=== PATIENT | female | born 1965 | race Caucasian/White ===

== ENCOUNTER 2020-12-25 18:01 | Inpatient (IN) | payer OTHER ==
[2020-12-25 19:30] VITALS: BMI 28.3
[2020-12-26] MEDS ORDERED: ONDANSETRON *ODT* 4 MG TABLET SL PRN (01:20)
[2020-12-26] MEDS ORDERED: METHOCARBAMOL 500 MG TABLET PO PRN (01:20)
[2020-12-26] MEDS ORDERED: MAG HYDROX/AL HYDROX/SIMETH 30 ML UNIT-DOSE CUP PO PRN (01:20)
[2020-12-26] MEDS ORDERED: MENTHOL/PHENOL 1 EACH UD MM PRN (01:20)
[2020-12-26] MEDS ORDERED: MAGNESIUM CITRATE 300 ML BOTTLE PO PRN (01:20)
[2020-12-26] MEDS ORDERED: ACETAMINOPHEN 325 MG TABLET (FP) PO PRN (01:20)
[2020-12-26] MEDS ORDERED: NICOTINE 10 MG CARTRIDGE (INHALER) IH PRN (01:20)
[2020-12-26] MEDS ORDERED: MAGNESIUM HYDROX 2400MG/30ML ORAL SUSPENSION 30 ML CUP PO PRN (01:20)
[2020-12-26] MEDS ORDERED: BISMUTH SUBSALICYLATE 524 MG/30 ML PO PRN (01:20)
[2020-12-26] MEDS: MELATONIN 5 MG TABLETS PO SCH ×2 (02:20→22:36)
[2020-12-26] MEDS: IBUPROFEN 400 MG TABLET (FP) PO PRN ×2 (02:36→17:33)
[2020-12-26] MEDS ORDERED: hydrOXYzine PAMOATE 25 MG CAPSULE (FP) PO SCH (06:00)
[2020-12-26] MEDS: diazePAM 5 MG TABLET PO SCH ×4 (07:05→22:36)
[2020-12-26] MEDS ORDERED: hydrOXYzine PAMOATE 25 MG CAPSULE (FP) PO PRN (07:31)
[2020-12-26] MEDS: PRENATAL VITAMINS W/ FOLIC ACID TABLET (FP) PO SCH (11:21)
[2020-12-26 15:53] LABS: HEMATOCRIT 38.9 % (32.4-45.2); HEMOGLOBIN 13.1 GM/dL (10.7-15.3); MCH 32.5 pg (25.7-33.7); MCHC 33.8 g/dl (32.0-36.0); MEAN CELL VOLUME 96.1 fl (80-96); MEAN PLT VOLUME 7.4 fl (7.5-11.1); PLATELET COUNT 207 10^3/uL (134-434); RBC 4.05 M/mm3 (3.60-5.2); RDW 14.3 % (11.6-15.6); WHITE BLOOD COUNT 6.5 K/mm3 (4.0-10.0)
[2020-12-26 16:03] LABS: ALBUMIN 3.6 g/dl (3.4-5.0); BLOOD UREA NITROGEN 23.9 mg/dL (7-18); CALCIUM 8.4 mg/dL (8.5-10.1)
[2020-12-26 16:08] LABS: BILIRUBIN,TOTAL 0.6 mg/dL (0.2-1); TOT PROT 6.2 g/dl (6.4-8.2)
[2020-12-26] MEDS: THIAMINE HCL 100 MG TABLET (FP) PO SCH (22:36)
[2020-12-26] MEDS: ACETAMINOPHEN 325 MG TABLET (FP) PO PRN (22:37)
[2020-12-27] MEDS: diazePAM 5 MG TABLET PO SCH ×3 (05:57→22:09)
[2020-12-27] MEDS: IBUPROFEN 400 MG TABLET (FP) PO PRN (06:16)
[2020-12-27] MEDS: PRENATAL VITAMINS W/ FOLIC ACID TABLET (FP) PO SCH (10:41)
[2020-12-27] MEDS: ACETAMINOPHEN 325 MG TABLET (FP) PO PRN ×2 (13:24→22:10)
[2020-12-27] MEDS: THIAMINE HCL 100 MG TABLET (FP) PO SCH (22:08)
[2020-12-27] MEDS: MELATONIN 5 MG TABLETS PO SCH (22:08)
[2020-12-28] MEDS: diazePAM 5 MG TABLET PO SCH ×2 (05:51→17:51)
[2020-12-28] MEDS: diazePAM 5 MG TABLET PO PRN ×2 (10:26→22:11)
[2020-12-28] MEDS: PRENATAL VITAMINS W/ FOLIC ACID TABLET (FP) PO SCH (10:28)
[2020-12-28] MEDS ORDERED: MASKS NR ONE (10:28)
[2020-12-28] MEDS: MELATONIN 5 MG TABLETS PO SCH (22:10)
[2020-12-28] MEDS: THIAMINE HCL 100 MG TABLET (FP) PO SCH (22:10)
[2020-12-29] MEDS: IBUPROFEN 400 MG TABLET (FP) PO PRN (05:51)
[2020-12-29] MEDS ORDERED: diazePAM 5 MG TABLET PO ONE (06:00)
[2020-12-29 06:26] VITALS: TEMP 96.9
[2020-12-29] MEDS: PRENATAL VITAMINS W/ FOLIC ACID TABLET (FP) PO SCH (09:16)
[2020-12-29 11:00] VITALS: BP 125/94; PULSE 100
== END 2020-12-29 10:54 | disposition home or self-care (01) | DRG 775 ==
LOC: YASAS 18:01 → Y3N 23:32
PROVIDERS: ADMIT Allergy & Immunology; ATTEND Allergy & Immunology
PROC: HZ2ZZZZ Detoxification Services for Substance Abuse Treatment (ICD-10-PCS; principal; 2020-12-25)
DX: F10.230 Alcohol dependence with withdrawal, uncomplicated (principal); F19.24 Other psychoactive substance dependence with psychoactive substance-induced mood disorder; I10 Essential (primary) hypertension; G40.909 Epilepsy, unspecified, not intractable, without status epilepticus; E78.5 Hyperlipidemia, unspecified; G47.00 Insomnia, unspecified; Z56.0 Unemployment, unspecified
CPT/HCPCS: 36415; 80053; 81025; 84520; 85027; 86780; C9803; U0003; U0005

== ENCOUNTER 2021-08-26 12:49 | Inpatient (IN) | payer OTHER ==
[2021-08-26] MEDS ORDERED: ONDANSETRON *ODT* 4 MG TABLET SL PRN (14:03)
[2021-08-26] MEDS ORDERED: LOPERAMIDE HCL 2 MG CAPSULE PO PRN (14:03)
[2021-08-26] MEDS ORDERED: IBUPROFEN 400 MG TABLET (FP) PO PRN (14:03)
[2021-08-26] MEDS ORDERED: NICOTINE 10 MG CARTRIDGE (INHALER) IH PRN (14:03)
[2021-08-26] MEDS ORDERED: MAGNESIUM CITRATE 300 ML BOTTLE PO PRN (14:03)
[2021-08-26] MEDS ORDERED: BISMUTH SUBSALICYLATE 262 MG/15 ML BTL PO PRN (14:03)
[2021-08-26] MEDS ORDERED: ACETAMINOPHEN 325 MG TABLET (FP) PO PRN (14:03)
[2021-08-26] MEDS ORDERED: MAG HYDROX/AL HYDROX/SIMETH 30 ML UNIT-DOSE CUP PO PRN (14:03)
[2021-08-26] MEDS ORDERED: MENTHOL/PHENOL 1 EACH UD MM PRN (14:03)
[2021-08-26] MEDS ORDERED: MAGNESIUM HYDROX 2400MG/30ML ORAL SUSPENSION 30 ML CUP PO PRN (14:03)
[2021-08-26] MEDS ORDERED: DICYCLOMINE HCL 10 MG CAPSULE PO PRN (14:03)
[2021-08-26] MEDS ORDERED: LISINOPRIL 5 MG TABLET PO ONE (17:02)
[2021-08-26] MEDS: hydrOXYzine PAMOATE 25 MG CAPSULE (FP) PO SCH ×2 (18:21→22:38)
[2021-08-26] MEDS: diazePAM 5 MG TABLET PO SCH ×2 (18:21→22:38)
[2021-08-26 19:22] VITALS: BMI 28.9
[2021-08-26] MEDS: THIAMINE HCL 100 MG TABLET (FP) PO SCH (22:38)
[2021-08-26] MEDS: MELATONIN 5 MG TABLETS PO SCH (22:38)
[2021-08-27] MEDS: hydrOXYzine PAMOATE 25 MG CAPSULE (FP) PO SCH ×5 (05:32→22:26)
[2021-08-27] MEDS: diazePAM 5 MG TABLET PO SCH ×4 (05:32→22:27)
[2021-08-27 09:28] LABS: HEMATOCRIT 38.7 % (32.4-45.2); HEMOGLOBIN 12.7 GM/dL (10.7-15.3); MCH 31.1 pg (25.7-33.7); MCHC 32.8 g/dl (32.0-36.0); MEAN CELL VOLUME 94.8 fl (80-96); MEAN PLT VOLUME 7.8 fl (7.5-11.1); PLATELET COUNT 268 10^3/uL (134-434); RBC 4.08 M/mm3 (3.60-5.2); RDW 13.7 % (11.6-15.6); WHITE BLOOD COUNT 6.3 K/mm3 (4.0-10.0)
[2021-08-27 09:34] LABS: BLOOD UREA NITROGEN 15.4 mg/dL (7-18)
[2021-08-27 09:35] LABS: CALCIUM 9.1 mg/dL (8.5-10.1)
[2021-08-27 09:36] LABS: ALBUMIN 3.5 g/dl (3.4-5.0); CREATININE 0.7 mg/dL (0.55-1.3)
[2021-08-27 09:39] LABS: BILIRUBIN,TOTAL 0.2 mg/dL (0.2-1); TOT PROT 6.9 g/dl (6.4-8.2)
[2021-08-27] MEDS: PRENATAL VITAMINS W/ FOLIC ACID TABLET (FP) PO SCH (10:45)
[2021-08-27] MEDS: amLODIPine BESYLATE 5 MG TABLET (FP) PO SCH (13:42)
[2021-08-27] MEDS: LISINOPRIL 5 MG TABLET PO SCH (13:42)
[2021-08-27] MEDS: CARVEDILOL 25 MG TABLET (FP) PO SCH (15:25)
[2021-08-27] MEDS: ACETAMINOPHEN 325 MG TABLET (FP) PO PRN (15:26)
[2021-08-27] MEDS: MELATONIN 5 MG TABLETS PO SCH (22:26)
[2021-08-27] MEDS: THIAMINE HCL 100 MG TABLET (FP) PO SCH (22:26)
[2021-08-27] MEDS: BACITRACIN 0.9 GM PACKET TP SCH (22:26)
[2021-08-28] MEDS: hydrOXYzine PAMOATE 25 MG CAPSULE (FP) PO SCH ×5 (05:38→22:24)
[2021-08-28] MEDS: diazePAM 5 MG TABLET PO SCH ×3 (05:38→22:26)
[2021-08-28] MEDS: LISINOPRIL 5 MG TABLET PO SCH (10:31)
[2021-08-28] MEDS: PRENATAL VITAMINS W/ FOLIC ACID TABLET (FP) PO SCH (10:31)
[2021-08-28] MEDS: METHOCARBAMOL 500 MG TABLET PO PRN (10:31)
[2021-08-28] MEDS: amLODIPine BESYLATE 5 MG TABLET (FP) PO SCH (10:31)
[2021-08-28] MEDS: BACITRACIN 0.9 GM PACKET TP SCH ×2 (10:32→22:26)
[2021-08-28] MEDS: CARVEDILOL 25 MG TABLET (FP) PO SCH (10:32)
[2021-08-28] MEDS: diazePAM 5 MG TABLET PO PRN (17:54)
[2021-08-28] MEDS: THIAMINE HCL 100 MG TABLET (FP) PO SCH (22:26)
[2021-08-28] MEDS: MELATONIN 5 MG TABLETS PO SCH (22:26)
[2021-08-29] MEDS: diazePAM 5 MG TABLET PO SCH ×2 (05:30→18:09)
[2021-08-29] MEDS: hydrOXYzine PAMOATE 25 MG CAPSULE (FP) PO SCH ×5 (05:30→22:00)
[2021-08-29] MEDS: CARVEDILOL 25 MG TABLET (FP) PO SCH (10:15)
[2021-08-29] MEDS: amLODIPine BESYLATE 5 MG TABLET (FP) PO SCH (10:16)
[2021-08-29] MEDS: BACITRACIN 0.9 GM PACKET TP SCH ×2 (10:16→23:17)
[2021-08-29] MEDS: diazePAM 5 MG TABLET PO PRN (10:16)
[2021-08-29] MEDS: LISINOPRIL 5 MG TABLET PO SCH (10:16)
[2021-08-29] MEDS: PRENATAL VITAMINS W/ FOLIC ACID TABLET (FP) PO SCH (10:16)
[2021-08-29] MEDS: METHOCARBAMOL 500 MG TABLET PO PRN (10:16)
[2021-08-29 13:32] LABS: URINE APPEARANCE CLEAR; URINE BILIRUBIN NEGATIVE (NEGATIVE); URINE COLOR YELLOW; URINE GLUCOSE (UA) NEGATIVE (NEGATIVE); URINE KETONE NEGATIVE (NEGATIVE); URINE LEUK ESTERASE NEGATIVE (NEGATIVE); URINE NITRITE NEGATIVE (NEGATIVE); URINE PROTEIN NEGATIVE (NEGATIVE); URINE UROBILINOGEN 0.2 mg/dL (0.2-1.0)
[2021-08-29] MEDS: MELATONIN 5 MG TABLETS PO SCH (22:00)
[2021-08-29] MEDS: THIAMINE HCL 100 MG TABLET (FP) PO SCH (22:00)
[2021-08-30] MEDS ORDERED: diazePAM 5 MG TABLET PO ONE (06:00)
[2021-08-30] MEDS: hydrOXYzine PAMOATE 25 MG CAPSULE (FP) PO SCH ×5 (06:19→22:04)
[2021-08-30] MEDS: CARVEDILOL 25 MG TABLET (FP) PO SCH (10:09)
[2021-08-30] MEDS: amLODIPine BESYLATE 5 MG TABLET (FP) PO SCH (10:09)
[2021-08-30] MEDS: LISINOPRIL 5 MG TABLET PO SCH (10:09)
[2021-08-30] MEDS: PRENATAL VITAMINS W/ FOLIC ACID TABLET (FP) PO SCH (10:09)
[2021-08-30] MEDS: BACITRACIN 0.9 GM PACKET TP SCH (10:09)
[2021-08-30] MEDS: MELATONIN 5 MG TABLETS PO SCH (22:04)
[2021-08-30] MEDS: THIAMINE HCL 100 MG TABLET (FP) PO SCH (22:04)
[2021-08-31] MEDS: BACITRACIN 0.9 GM PACKET TP SCH ×2 (00:02→10:07)
[2021-08-31] MEDS: hydrOXYzine PAMOATE 25 MG CAPSULE (FP) PO SCH ×2 (06:00→10:08)
[2021-08-31] MEDS: ACETAMINOPHEN 325 MG TABLET (FP) PO PRN (06:01)
[2021-08-31 09:30] VITALS: BP 132/91; PULSE 88; TEMP 97.4
[2021-08-31] MEDS: LISINOPRIL 5 MG TABLET PO SCH (10:08)
[2021-08-31] MEDS: PRENATAL VITAMINS W/ FOLIC ACID TABLET (FP) PO SCH (10:08)
[2021-08-31] MEDS: amLODIPine BESYLATE 5 MG TABLET (FP) PO SCH (10:08)
[2021-08-31] MEDS: CARVEDILOL 25 MG TABLET (FP) PO SCH (10:08)
== END 2021-08-31 11:08 | disposition home or self-care (01) | DRG 775 ==
LOC: YASAS 12:49 → Y6N 16:42
PROVIDERS: ADMIT Allergy & Immunology; ATTEND Allergy & Immunology
PROC: HZ2ZZZZ Detoxification Services for Substance Abuse Treatment (ICD-10-PCS; principal; 2021-08-26)
DX: F10.230 Alcohol dependence with withdrawal, uncomplicated (principal); F19.24 Other psychoactive substance dependence with psychoactive substance-induced mood disorder; F34.1 Dysthymic disorder; G40.909 Epilepsy, unspecified, not intractable, without status epilepticus; G47.00 Insomnia, unspecified; I10 Essential (primary) hypertension; Z91.410 Personal history of adult physical and sexual abuse; Z91.51 Personal history of suicidal behavior; S02.2XXD Fracture of nasal bones, subsequent encounter for fracture with routine healing; W19.XXXD Unspecified fall, subsequent encounter
CPT/HCPCS: 36415; 80053; 81003; 82962; 85027; 86780; 87811; 93005; 93010; C9803-CS; U0003; U0005

== ENCOUNTER 2022-03-22 16:06 | Inpatient (IN) | payer OTHER ==
[2022-03-22 19:12] VITALS: BMI 28.3
[2022-03-22] MEDS ORDERED: MAGNESIUM CITRATE 300 ML BOTTLE PO PRN (19:37)
[2022-03-22] MEDS ORDERED: IBUPROFEN 600 MG TABLET (FP) PO PRN (19:37)
[2022-03-22] MEDS ORDERED: IBUPROFEN 400 MG TABLET (FP) PO PRN (19:37)
[2022-03-22] MEDS ORDERED: NALOXONE HCL (KLOXXADO) 8 MG SPRAY NS PRN (19:37)
[2022-03-22] MEDS ORDERED: MAG HYDROX/AL HYDROX/SIMETH 30 ML UNIT-DOSE CUP PO PRN (19:37)
[2022-03-22] MEDS ORDERED: MAGNESIUM HYDROX 2400MG/30ML ORAL SUSPENSION 30 ML CUP PO PRN (19:37)
[2022-03-22] MEDS ORDERED: BENZOCAINE/MENTHOL (CHLORASEPTIC ) LOZENGE MM PRN (19:37)
[2022-03-22] MEDS ORDERED: ONDANSETRON *ODT* 4 MG TABLET SL PRN (19:37)
[2022-03-22] MEDS ORDERED: ACETAMINOPHEN 325 MG TABLET (FP) PO PRN ×2 (19:37)
[2022-03-22] MEDS ORDERED: DICYCLOMINE HCL 10 MG CAPSULE PO PRN (19:37)
[2022-03-22] MEDS ORDERED: LOPERAMIDE HCL 2 MG CAPSULE PO PRN (19:37)
[2022-03-22] MEDS ORDERED: BISMUTH SUBSALICYLATE 524 MG/30 ML PO PRN (19:37)
[2022-03-22] MEDS: LISINOPRIL 10 MG TABLET PO SCH (20:31)
[2022-03-22] MEDS: PRENATAL VITAMINS W/ FOLIC ACID TABLET (FP) PO SCH (21:25)
[2022-03-22] MEDS: LEVOTHYROXINE NA 25 MCG TABLET (FP) PO SCH (21:25)
[2022-03-22] MEDS: propRANOLol HCL 10 MG TABLET PO SCH (22:55)
[2022-03-22] MEDS: THIAMINE HCL 100 MG TABLET (FP) PO SCH (22:55)
[2022-03-22] MEDS: MELATONIN 5 MG TABLETS PO SCH (22:55)
[2022-03-22] MEDS: ROSUVASTATIN CA 5 MG TABLET PO SCH (22:55)
[2022-03-23] MEDS: LEVOTHYROXINE NA 25 MCG TABLET (FP) PO SCH (06:46)
[2022-03-23] MEDS: propRANOLol HCL 10 MG TABLET PO SCH ×2 (10:15→22:11)
[2022-03-23] MEDS: PRENATAL VITAMINS W/ FOLIC ACID TABLET (FP) PO SCH (10:15)
[2022-03-23] MEDS: LISINOPRIL 10 MG TABLET PO SCH (10:15)
[2022-03-23] MEDS: hydrOXYzine PAMOATE 25 MG CAPSULE (FP) PO PRN (10:18)
[2022-03-23 12:54] LABS: HEMATOCRIT 33.8 % (32.4-45.2); HEMOGLOBIN 11.3 GM/dL (10.7-15.3); MCHC 33.5 g/dl (32.0-36.0); MEAN CELL VOLUME 95.5 fl (80-96); MEAN PLT VOLUME 6.9 fl (7.5-11.1); PLATELET COUNT 185 10^3/uL (134-434); RBC 3.54 M/mm3 (3.60-5.2); RDW 14.1 % (11.6-15.6); WHITE BLOOD COUNT 6.5 K/mm3 (4.0-10.0)
[2022-03-23 13:09] LABS: BLOOD UREA NITROGEN 11.4 mg/dL (7-18)
[2022-03-23 13:10] LABS: ALBUMIN 2.9 g/dl (3.4-5.0)
[2022-03-23 13:12] LABS: CREATININE 0.8 mg/dL (0.55-1.3)
[2022-03-23 13:14] LABS: BILIRUBIN,TOTAL 0.5 mg/dL (0.2-1); TOT PROT 5.7 g/dl (6.4-8.2)
[2022-03-23] MEDS ORDERED: POTASSIUM CHLORIDE ORAL LIQUID 20 MEQ/15 ML PO ONE (14:45)
[2022-03-23] MEDS: ROSUVASTATIN CA 5 MG TABLET PO SCH (22:11)
[2022-03-23] MEDS: busPIRone HCL 10 MG TABLET (FP) PO SCH (22:11)
[2022-03-23] MEDS: METHOCARBAMOL 500 MG TABLET PO PRN (22:12)
[2022-03-23] MEDS: MELATONIN 5 MG TABLETS PO SCH (22:12)
[2022-03-23] MEDS: THIAMINE HCL 100 MG TABLET (FP) PO SCH (22:12)
[2022-03-24] MEDS: hydrOXYzine PAMOATE 25 MG CAPSULE (FP) PO PRN (03:54)
[2022-03-24] MEDS: METHOCARBAMOL 500 MG TABLET PO PRN (03:55)
[2022-03-24] MEDS: LEVOTHYROXINE NA 25 MCG TABLET (FP) PO SCH (06:01)
[2022-03-24] MEDS: busPIRone HCL 10 MG TABLET (FP) PO SCH ×2 (06:03→14:00)
[2022-03-24 08:53] VITALS: RESP 18
[2022-03-24] MEDS: PRENATAL VITAMINS W/ FOLIC ACID TABLET (FP) PO SCH (10:19)
[2022-03-24] MEDS: propRANOLol HCL 10 MG TABLET PO SCH (10:19)
[2022-03-24] MEDS: LISINOPRIL 10 MG TABLET PO SCH (10:19)
[2022-03-24 13:41] LABS: CALCIUM 9.1 mg/dL (8.5-10.1)
[2022-03-24 13:42] LABS: BLOOD UREA NITROGEN 13.5 mg/dL (7-18)
[2022-03-24 13:45] LABS: CREATININE 0.7 mg/dL (0.55-1.3)
[2022-03-24 13:48] VITALS: BP 118/69; PULSE 73; TEMP 98.4
== END 2022-03-24 14:02 | disposition other institution (70) | DRG 773 ==
LOC: YASAS 16:06 → UNDOADMIN 20:37 → Y3N 20:37 → UNDODISIN 03-24 14:02
PROVIDERS: ADMIT Allergy & Immunology; ATTEND Surgery
PROC: HZ2ZZZZ Detoxification Services for Substance Abuse Treatment (ICD-10-PCS; principal; 2022-03-22)
DX: F11.23 Opioid dependence with withdrawal (principal); F10.230 Alcohol dependence with withdrawal, uncomplicated; F41.9 Anxiety disorder, unspecified; F32.A Depression, unspecified; E87.1 Hypo-osmolality and hyponatremia; E87.6 Hypokalemia; E78.5 Hyperlipidemia, unspecified; I10 Essential (primary) hypertension; G40.909 Epilepsy, unspecified, not intractable, without status epilepticus; R94.31 Abnormal electrocardiogram [ECG] [EKG]
CPT/HCPCS: 36415; 80048; 80053; 84443; 85027; 86780; 93005; 93010; C9803-CS; G0480; U0003; U0005

== ENCOUNTER 2022-03-24 14:08 | Inpatient (IN) | payer OTHER ==
[2022-03-24] MEDS ORDERED: hydrOXYzine PAMOATE 25 MG CAPSULE (FP) PO PRN (16:08)
[2022-03-24] MEDS ORDERED: ACETAMINOPHEN 325 MG TABLET (FP) PO PRN (16:08)
[2022-03-24] MEDS ORDERED: MAGNESIUM CITRATE 300 ML BOTTLE PO PRN (16:08)
[2022-03-24] MEDS ORDERED: BENZOCAINE/MENTHOL (CHLORASEPTIC ) LOZENGE MM PRN (16:08)
[2022-03-24] MEDS ORDERED: LOPERAMIDE HCL 2 MG CAPSULE PO PRN (16:08)
[2022-03-24] MEDS ORDERED: P-EPHED 60MG/TRIPROLIDI 2.5MG TABLET PO PRN (16:08)
[2022-03-24] MEDS ORDERED: MAG HYDROX/AL HYDROX/SIMETH 30 ML UNIT-DOSE CUP PO PRN (16:08)
[2022-03-24] MEDS ORDERED: NICOTINE 10 MG CARTRIDGE (INHALER) IH PRN (16:08)
[2022-03-24] MEDS ORDERED: MAGNESIUM HYDROX 2400MG/30ML ORAL SUSPENSION 30 ML CUP PO PRN (16:08)
[2022-03-24] MEDS ORDERED: TUBERCULIN PPD 5 TU/0.1ML VIAL ID ONE (16:48)
[2022-03-24] MEDS: THIAMINE HCL 100 MG TABLET (FP) PO SCH (21:06)
[2022-03-24] MEDS: MELATONIN 5 MG TABLETS PO SCH (21:06)
[2022-03-24] MEDS: GABAPENTIN 300 MG CAPSULE PO SCH (21:07)
[2022-03-24] MEDS: busPIRone HCL 10 MG TABLET (FP) PO SCH (21:07)
[2022-03-24] MEDS: propRANOLol HCL 10 MG TABLET PO SCH (21:08)
[2022-03-24] MEDS: ROSUVASTATIN CA 5 MG TABLET PO SCH (21:08)
[2022-03-24] MEDS: guaiFENesin 200 MG/10 ML 10 ML UNIT-DOSE CUPS PO PRN (21:10)
[2022-03-25] MEDS: LEVOTHYROXINE NA 25 MCG TABLET (FP) PO SCH (06:39)
[2022-03-25] MEDS: busPIRone HCL 10 MG TABLET (FP) PO SCH ×3 (06:39→21:11)
[2022-03-25] MEDS: GABAPENTIN 300 MG CAPSULE PO SCH ×2 (10:05→21:11)
[2022-03-25] MEDS: LISINOPRIL 20 MG TABLET PO SCH (10:05)
[2022-03-25] MEDS: PRENATAL VITAMINS W/ FOLIC ACID TABLET (FP) PO SCH (10:05)
[2022-03-25] MEDS: propRANOLol HCL 10 MG TABLET PO SCH ×2 (10:38→21:11)
[2022-03-25] MEDS: MELATONIN 5 MG TABLETS PO SCH (21:11)
[2022-03-25] MEDS: THIAMINE HCL 100 MG TABLET (FP) PO SCH (21:11)
[2022-03-25] MEDS: ROSUVASTATIN CA 5 MG TABLET PO SCH (21:11)
[2022-03-25] MEDS: guaiFENesin 200 MG/10 ML 10 ML UNIT-DOSE CUPS PO PRN (21:12)
[2022-03-25] MEDS ORDERED: ROSUVASTATIN CA 5 MG TABLET PO SCH (22:00)
[2022-03-26] MEDS: IBUPROFEN 400 MG TABLET (FP) PO PRN (02:26)
[2022-03-26] MEDS: guaiFENesin 200 MG/10 ML 10 ML UNIT-DOSE CUPS PO PRN ×2 (05:57→22:04)
[2022-03-26] MEDS: busPIRone HCL 10 MG TABLET (FP) PO SCH ×3 (05:57→22:00)
[2022-03-26] MEDS: LEVOTHYROXINE NA 25 MCG TABLET (FP) PO SCH (06:00)
[2022-03-26] MEDS: GABAPENTIN 300 MG CAPSULE PO SCH ×2 (09:54→22:00)
[2022-03-26] MEDS: PRENATAL VITAMINS W/ FOLIC ACID TABLET (FP) PO SCH (09:54)
[2022-03-26] MEDS: propRANOLol HCL 10 MG TABLET PO SCH ×2 (09:55→22:00)
[2022-03-26] MEDS: LISINOPRIL 20 MG TABLET PO SCH (11:14)
[2022-03-26] MEDS: THIAMINE HCL 100 MG TABLET (FP) PO SCH (22:00)
[2022-03-26] MEDS: ROSUVASTATIN CA 5 MG TABLET PO SCH (22:00)
[2022-03-26] MEDS: SUVOREXANT 10 MG TABLET PO PRN (22:02)
[2022-03-27] MEDS: TOPIRAMATE 25 MG TABLET PO SCH ×3 (00:03→22:09)
[2022-03-27] MEDS: busPIRone HCL 10 MG TABLET (FP) PO SCH ×3 (07:01→22:09)
[2022-03-27] MEDS: LEVOTHYROXINE NA 25 MCG TABLET (FP) PO SCH (07:01)
[2022-03-27] MEDS: PRENATAL VITAMINS W/ FOLIC ACID TABLET (FP) PO SCH (10:36)
[2022-03-27] MEDS: LISINOPRIL 20 MG TABLET PO SCH (10:36)
[2022-03-27] MEDS: GABAPENTIN 300 MG CAPSULE PO SCH ×2 (10:36→22:09)
[2022-03-27] MEDS: propRANOLol HCL 10 MG TABLET PO SCH ×2 (10:38→22:09)
[2022-03-27] MEDS: guaiFENesin 200 MG/10 ML 10 ML UNIT-DOSE CUPS PO PRN ×2 (10:40→22:10)
[2022-03-27] MEDS: THIAMINE HCL 100 MG TABLET (FP) PO SCH (22:09)
[2022-03-27] MEDS: ROSUVASTATIN CA 5 MG TABLET PO SCH (22:09)
[2022-03-27] MEDS: SUVOREXANT 10 MG TABLET PO PRN (22:10)
[2022-03-28] MEDS: LEVOTHYROXINE NA 25 MCG TABLET (FP) PO SCH (06:15)
[2022-03-28] MEDS: guaiFENesin 200 MG/10 ML 10 ML UNIT-DOSE CUPS PO PRN ×2 (06:15→22:24)
[2022-03-28] MEDS: busPIRone HCL 10 MG TABLET (FP) PO SCH ×3 (06:15→22:37)
[2022-03-28] MEDS: PRENATAL VITAMINS W/ FOLIC ACID TABLET (FP) PO SCH (10:33)
[2022-03-28] MEDS: GABAPENTIN 300 MG CAPSULE PO SCH ×2 (10:33→22:20)
[2022-03-28] MEDS: LISINOPRIL 20 MG TABLET PO SCH (10:33)
[2022-03-28] MEDS: propRANOLol HCL 10 MG TABLET PO SCH ×2 (10:34→22:21)
[2022-03-28] MEDS: TOPIRAMATE 25 MG TABLET PO SCH ×2 (10:35→22:21)
[2022-03-28] MEDS: THIAMINE HCL 100 MG TABLET (FP) PO SCH (22:20)
[2022-03-28] MEDS: ROSUVASTATIN CA 5 MG TABLET PO SCH (22:21)
[2022-03-28] MEDS: SUVOREXANT 10 MG TABLET PO PRN (22:23)
[2022-03-29] MEDS: busPIRone HCL 10 MG TABLET (FP) PO SCH ×2 (06:22→14:26)
[2022-03-29] MEDS: LEVOTHYROXINE NA 25 MCG TABLET (FP) PO SCH (06:22)
[2022-03-29] MEDS: LISINOPRIL 20 MG TABLET PO SCH (10:40)
[2022-03-29] MEDS: PRENATAL VITAMINS W/ FOLIC ACID TABLET (FP) PO SCH (10:40)
[2022-03-29] MEDS: propRANOLol HCL 10 MG TABLET PO SCH ×2 (10:41→21:20)
[2022-03-29] MEDS: GABAPENTIN 300 MG CAPSULE PO SCH ×2 (10:42→21:20)
[2022-03-29] MEDS: TOPIRAMATE 25 MG TABLET PO SCH ×2 (10:42→21:19)
[2022-03-29] MEDS: IBUPROFEN 400 MG TABLET (FP) PO PRN (10:43)
[2022-03-29] MEDS: THIAMINE HCL 100 MG TABLET (FP) PO SCH (21:19)
[2022-03-29] MEDS: ROSUVASTATIN CA 5 MG TABLET PO SCH (21:20)
[2022-03-29] MEDS: SUVOREXANT 10 MG TABLET PO PRN (21:22)
[2022-03-30] MEDS: LEVOTHYROXINE NA 25 MCG TABLET (FP) PO SCH (06:14)
[2022-03-30] MEDS: GABAPENTIN 300 MG CAPSULE PO SCH ×2 (10:49→21:15)
[2022-03-30] MEDS: PRENATAL VITAMINS W/ FOLIC ACID TABLET (FP) PO SCH (10:49)
[2022-03-30] MEDS: LISINOPRIL 20 MG TABLET PO SCH (10:49)
[2022-03-30] MEDS: TOPIRAMATE 25 MG TABLET PO SCH ×2 (10:50→21:15)
[2022-03-30] MEDS: propRANOLol HCL 10 MG TABLET PO SCH ×2 (10:50→21:15)
[2022-03-30] MEDS: THIAMINE HCL 100 MG TABLET (FP) PO SCH (21:15)
[2022-03-30] MEDS: ROSUVASTATIN CA 5 MG TABLET PO SCH (21:15)
[2022-03-30] MEDS: guaiFENesin 200 MG/10 ML 10 ML UNIT-DOSE CUPS PO PRN (21:30)
[2022-03-31] MEDS: LEVOTHYROXINE NA 25 MCG TABLET (FP) PO SCH (06:42)
[2022-03-31] MEDS: LISINOPRIL 20 MG TABLET PO SCH (09:42)
[2022-03-31] MEDS: propRANOLol HCL 10 MG TABLET PO SCH ×2 (09:42→21:06)
[2022-03-31] MEDS: TOPIRAMATE 25 MG TABLET PO SCH ×2 (09:43→21:07)
[2022-03-31] MEDS: PRENATAL VITAMINS W/ FOLIC ACID TABLET (FP) PO SCH (09:43)
[2022-03-31] MEDS: GABAPENTIN 300 MG CAPSULE PO SCH ×2 (09:44→21:06)
[2022-03-31 17:24] LABS: BLOOD UREA NITROGEN 22.7 mg/dL (7-18); CALCIUM 9.6 mg/dL (8.5-10.1)
[2022-03-31 17:27] LABS: TOT PROT 7.2 g/dl (6.4-8.2)
[2022-03-31 17:29] LABS: BILIRUBIN,TOTAL 0.3 mg/dL (0.2-1)
[2022-03-31 17:39] LABS: ALBUMIN 4.1 g/dl (3.4-5.0)
[2022-03-31] MEDS: ROSUVASTATIN CA 5 MG TABLET PO SCH (21:06)
[2022-03-31] MEDS: guaiFENesin 200 MG/10 ML 10 ML UNIT-DOSE CUPS PO PRN (21:06)
[2022-03-31] MEDS: THIAMINE HCL 100 MG TABLET (FP) PO SCH (21:07)
[2022-04-01] MEDS: LEVOTHYROXINE NA 25 MCG TABLET (FP) PO SCH (06:32)
[2022-04-01] MEDS: propRANOLol HCL 10 MG TABLET PO SCH ×2 (10:08→21:10)
[2022-04-01] MEDS: PRENATAL VITAMINS W/ FOLIC ACID TABLET (FP) PO SCH (10:08)
[2022-04-01] MEDS: LISINOPRIL 20 MG TABLET PO SCH (10:08)
[2022-04-01] MEDS: GABAPENTIN 300 MG CAPSULE PO SCH ×2 (10:10→21:10)
[2022-04-01] MEDS: TOPIRAMATE 25 MG TABLET PO SCH ×2 (10:10→21:10)
[2022-04-01] MEDS ORDERED: LACTULOSE 20 GM/30 ML UDC (FOR ORAL USE ONLY) PO PRN (12:39)
[2022-04-01] MEDS: LACTULOSE 20 GM/30 ML UDC (FOR ORAL USE ONLY) PO SCH ×2 (14:15→21:10)
[2022-04-01] MEDS: THIAMINE HCL 100 MG TABLET (FP) PO SCH (21:10)
[2022-04-01] MEDS: ROSUVASTATIN CA 5 MG TABLET PO SCH (21:10)
[2022-04-01] MEDS: guaiFENesin 200 MG/10 ML 10 ML UNIT-DOSE CUPS PO PRN (21:12)
[2022-04-01] MEDS: SUVOREXANT 10 MG TABLET PO PRN (21:12)
[2022-04-02] MEDS: LEVOTHYROXINE NA 25 MCG TABLET (FP) PO SCH (06:33)
[2022-04-02] MEDS: LACTULOSE 20 GM/30 ML UDC (FOR ORAL USE ONLY) PO SCH ×3 (06:34→21:27)
[2022-04-02] MEDS: PRENATAL VITAMINS W/ FOLIC ACID TABLET (FP) PO SCH (10:53)
[2022-04-02] MEDS: GABAPENTIN 300 MG CAPSULE PO SCH ×2 (10:54→21:28)
[2022-04-02] MEDS: LISINOPRIL 20 MG TABLET PO SCH (10:54)
[2022-04-02] MEDS: propRANOLol HCL 10 MG TABLET PO SCH ×2 (10:54→21:27)
[2022-04-02] MEDS: TOPIRAMATE 25 MG TABLET PO SCH ×2 (10:56→21:27)
[2022-04-02] MEDS: ROSUVASTATIN CA 5 MG TABLET PO SCH (21:27)
[2022-04-02] MEDS: THIAMINE HCL 100 MG TABLET (FP) PO SCH (21:27)
[2022-04-02] MEDS: guaiFENesin 200 MG/10 ML 10 ML UNIT-DOSE CUPS PO PRN (21:30)
[2022-04-02] MEDS: SUVOREXANT 10 MG TABLET PO PRN (21:30)
[2022-04-03] MEDS: LACTULOSE 20 GM/30 ML UDC (FOR ORAL USE ONLY) PO SCH ×3 (06:36→22:05)
[2022-04-03] MEDS: LEVOTHYROXINE NA 25 MCG TABLET (FP) PO SCH (06:36)
[2022-04-03] MEDS: TOPIRAMATE 25 MG TABLET PO SCH ×2 (10:30→22:04)
[2022-04-03] MEDS: LISINOPRIL 20 MG TABLET PO SCH (10:30)
[2022-04-03] MEDS: GABAPENTIN 300 MG CAPSULE PO SCH ×2 (10:30→22:05)
[2022-04-03] MEDS: PRENATAL VITAMINS W/ FOLIC ACID TABLET (FP) PO SCH (10:30)
[2022-04-03] MEDS: propRANOLol HCL 10 MG TABLET PO SCH ×2 (10:33→22:05)
[2022-04-03] MEDS: guaiFENesin 200 MG/10 ML 10 ML UNIT-DOSE CUPS PO PRN ×2 (10:35→22:05)
[2022-04-03] MEDS: SUVOREXANT 10 MG TABLET PO PRN (22:04)
[2022-04-03] MEDS: ROSUVASTATIN CA 5 MG TABLET PO SCH (22:04)
[2022-04-03] MEDS: THIAMINE HCL 100 MG TABLET (FP) PO SCH (22:05)
[2022-04-04] MEDS: LACTULOSE 20 GM/30 ML UDC (FOR ORAL USE ONLY) PO SCH ×3 (06:52→22:28)
[2022-04-04] MEDS: LEVOTHYROXINE NA 25 MCG TABLET (FP) PO SCH (06:52)
[2022-04-04] MEDS: PRENATAL VITAMINS W/ FOLIC ACID TABLET (FP) PO SCH (10:39)
[2022-04-04] MEDS: LISINOPRIL 20 MG TABLET PO SCH (10:40)
[2022-04-04] MEDS: TOPIRAMATE 25 MG TABLET PO SCH ×2 (10:41→21:56)
[2022-04-04] MEDS: GABAPENTIN 300 MG CAPSULE PO SCH ×2 (10:41→21:56)
[2022-04-04] MEDS: propRANOLol HCL 10 MG TABLET PO SCH ×2 (10:41→21:57)
[2022-04-04] MEDS: guaiFENesin 200 MG/10 ML 10 ML UNIT-DOSE CUPS PO PRN ×2 (10:42→21:59)
[2022-04-04] MEDS: THIAMINE HCL 100 MG TABLET (FP) PO SCH (21:57)
[2022-04-04] MEDS: ROSUVASTATIN CA 5 MG TABLET PO SCH (21:57)
[2022-04-04] MEDS: SUVOREXANT 10 MG TABLET PO PRN (21:58)
[2022-04-05] MEDS: LEVOTHYROXINE NA 25 MCG TABLET (FP) PO SCH (06:38)
[2022-04-05] MEDS: PRENATAL VITAMINS W/ FOLIC ACID TABLET (FP) PO SCH (10:34)
[2022-04-05] MEDS: propRANOLol HCL 10 MG TABLET PO SCH ×2 (10:34→21:43)
[2022-04-05] MEDS: GABAPENTIN 300 MG CAPSULE PO SCH ×2 (10:34→21:43)
[2022-04-05] MEDS: LISINOPRIL 20 MG TABLET PO SCH (10:35)
[2022-04-05] MEDS: TOPIRAMATE 25 MG TABLET PO SCH ×2 (10:36→21:43)
[2022-04-05] MEDS: guaiFENesin 200 MG/10 ML 10 ML UNIT-DOSE CUPS PO PRN ×2 (10:36→21:49)
[2022-04-05] MEDS: LACTULOSE 20 GM/30 ML UDC (FOR ORAL USE ONLY) PO SCH ×3 (10:37→21:43)
[2022-04-05] MEDS: ROSUVASTATIN CA 5 MG TABLET PO SCH (21:43)
[2022-04-05] MEDS: THIAMINE HCL 100 MG TABLET (FP) PO SCH (21:43)
[2022-04-05] MEDS: SUVOREXANT 10 MG TABLET PO PRN (21:45)
[2022-04-06] MEDS: LEVOTHYROXINE NA 25 MCG TABLET (FP) PO SCH (06:23)
[2022-04-06] MEDS: LACTULOSE 20 GM/30 ML UDC (FOR ORAL USE ONLY) PO SCH ×3 (06:23→21:26)
[2022-04-06] MEDS: guaiFENesin 200 MG/10 ML 10 ML UNIT-DOSE CUPS PO PRN ×2 (06:24→21:29)
[2022-04-06] MEDS: PRENATAL VITAMINS W/ FOLIC ACID TABLET (FP) PO SCH (10:39)
[2022-04-06] MEDS: LISINOPRIL 20 MG TABLET PO SCH (10:39)
[2022-04-06] MEDS: GABAPENTIN 300 MG CAPSULE PO SCH ×2 (10:40→21:26)
[2022-04-06] MEDS: propRANOLol HCL 10 MG TABLET PO SCH ×2 (10:41→21:26)
[2022-04-06] MEDS: TOPIRAMATE 25 MG TABLET PO SCH ×2 (10:41→21:26)
[2022-04-06] MEDS: IBUPROFEN 400 MG TABLET (FP) PO PRN (10:43)
[2022-04-06] MEDS: ROSUVASTATIN CA 5 MG TABLET PO SCH (21:26)
[2022-04-06] MEDS: THIAMINE HCL 100 MG TABLET (FP) PO SCH (21:26)
[2022-04-06] MEDS: SUVOREXANT 10 MG TABLET PO PRN (21:29)
[2022-04-07] MEDS: LACTULOSE 20 GM/30 ML UDC (FOR ORAL USE ONLY) PO SCH (06:34)
[2022-04-07] MEDS: LEVOTHYROXINE NA 25 MCG TABLET (FP) PO SCH (06:34)
[2022-04-07 07:56] VITALS: BP 101/68; PULSE 90; RESP 18; TEMP 96.2
[2022-04-07] MEDS: propRANOLol HCL 10 MG TABLET PO SCH (09:43)
[2022-04-07] MEDS: PRENATAL VITAMINS W/ FOLIC ACID TABLET (FP) PO SCH (09:44)
[2022-04-07] MEDS: GABAPENTIN 300 MG CAPSULE PO SCH (09:44)
[2022-04-07] MEDS: TOPIRAMATE 25 MG TABLET PO SCH (09:44)
[2022-04-07] MEDS: guaiFENesin 200 MG/10 ML 10 ML UNIT-DOSE CUPS PO PRN (09:47)
[2022-04-07] MEDS: LISINOPRIL 20 MG TABLET PO SCH (09:50)
== END 2022-04-07 10:45 | disposition home or self-care (01) | DRG 772 ==
LOC: YASAS 14:08 → Y5N 14:09
PROVIDERS: ADMIT Allergy & Immunology; ATTEND Psychiatry & Neurology Pain Medicine
PROC: HZ42ZZZ Group Counseling for Substance Abuse Treatment, Cognitive-Behavioral (ICD-10-PCS; principal; 2022-03-24)
DX: F10.20 Alcohol dependence, uncomplicated (principal); F41.9 Anxiety disorder, unspecified; F32.A Depression, unspecified; G40.909 Epilepsy, unspecified, not intractable, without status epilepticus; I10 Essential (primary) hypertension; E78.5 Hyperlipidemia, unspecified; R79.89 Other specified abnormal findings of blood chemistry
CPT/HCPCS: 36415; 80053; 82140; 84443; 93005; 93010; G0480

== ENCOUNTER 2022-10-05 18:24 | Inpatient (IN) | payer OTHER ==
[2022-10-05 19:26] VITALS: BMI 25.7
[2022-10-05] MEDS ORDERED: POLYETHYLENE GLYCOL (HEALTHYLAX) 3350 17 GM PACKET PO PRN (22:50)
[2022-10-05] MEDS ORDERED: BISMUTH SUBSALICYLATE 524 MG/30 ML PO PRN (22:50)
[2022-10-05] MEDS ORDERED: IBUPROFEN 400 MG TABLET (FP) PO PRN (22:50)
[2022-10-05] MEDS ORDERED: DICYCLOMINE HCL 10 MG CAPSULE PO PRN (22:50)
[2022-10-05] MEDS ORDERED: ONDANSETRON *ODT* 4 MG TABLET SL PRN (22:50)
[2022-10-05] MEDS ORDERED: NALOXONE HCL (KLOXXADO) 8 MG SPRAY NS PRN (22:50)
[2022-10-05] MEDS ORDERED: LOPERAMIDE HCL 2 MG CAPSULE PO PRN (22:50)
[2022-10-05] MEDS ORDERED: NALOXONE HCL 0.4 MG/ML VIAL IM PRN (22:50)
[2022-10-05] MEDS ORDERED: guaiFENesin 600 MG TABLET.ER (FP) PO PRN (22:50)
[2022-10-05] MEDS ORDERED: IBUPROFEN 600 MG TABLET (FP) PO PRN (22:50)
[2022-10-05] MEDS ORDERED: BENZONATATE 200 MG CAPSULE PO PRN (22:50)
[2022-10-05] MEDS ORDERED: MAG HYDROX/AL HYDROX/SIMETH 30 ML UNIT-DOSE CUP PO PRN (22:50)
[2022-10-05] MEDS ORDERED: BENZOCAINE/MENTHOL (CHLORASEPTIC ) LOZENGE MM PRN (22:50)
[2022-10-05] MEDS ORDERED: MAGNESIUM HYDROX 2400MG/30ML ORAL SUSPENSION 30 ML CUP PO PRN (22:50)
[2022-10-05] MEDS ORDERED: P-EPHED 60MG/TRIPROLIDI 2.5MG TABLET PO PRN (22:50)
[2022-10-06] MEDS: diazePAM 5 MG TABLET PO PRN (01:22)
[2022-10-06] MEDS: ACETAMINOPHEN 325 MG TABLET (FP) PO PRN ×2 (01:23→18:33)
[2022-10-06] MEDS: METHOCARBAMOL 500 MG TABLET PO PRN ×2 (01:23→14:57)
[2022-10-06] MEDS: propRANOLol HCL 10 MG TABLET PO SCH ×4 (01:29→22:23)
[2022-10-06] MEDS: TOPIRAMATE 100 MG TABLET PO SCH ×3 (01:29→22:25)
[2022-10-06] MEDS: diazePAM 5 MG TABLET PO SCH ×5 (01:29→22:27)
[2022-10-06] MEDS: LEVOTHYROXINE NA 25 MCG TABLET (FP) PO SCH (06:09)
[2022-10-06] MEDS: PRENATAL VITAMINS W/ FOLIC ACID TABLET (FP) PO SCH (10:30)
[2022-10-06 11:23] LABS: CHLORIDE 107 mmol/L (98-107); SODIUM 141 mmol/L (136-145)
[2022-10-06 11:25] LABS: HEMATOCRIT 32.9 % (32.4-45.2); HEMOGLOBIN 11.4 GM/dL (10.7-15.3); MCH 29.3 pg (25.7-33.7); MCHC 34.7 g/dl (32.0-36.0); MEAN CELL VOLUME 84.5 fl (80-96); MEAN PLT VOLUME 6.8 fl (7.5-11.1); PLATELET COUNT 217 10^3/uL (134-434); RBC 3.89 M/mm3 (3.60-5.2); RDW 14.6 % (11.6-15.6); WHITE BLOOD COUNT 6.9 K/mm3 (4.0-10.0)
[2022-10-06 11:30] LABS: ALBUMIN 3.8 g/dl (3.4-5.0); CALCIUM 8.2 mg/dL (8.5-10.1)
[2022-10-06 11:31] LABS: BLOOD UREA NITROGEN 11.8 mg/dL (7-18); CO2 26 mmol/L (21-32); GLUCOSE,RANDOM 117 mg/dL (74-106)
[2022-10-06 11:33] LABS: CREATININE 1.1 mg/dL (0.55-1.3)
[2022-10-06 11:34] LABS: SGOT/AST 32 U/L (15-37)
[2022-10-06 11:35] LABS: TOT PROT 6.4 g/dl (6.4-8.2)
[2022-10-06 11:36] LABS: ALK PHOS 89 U/L (45-117); ANION GAP 8 MMOL/L (8-16); BILIRUBIN,TOTAL 1.1 mg/dL (0.2-1); POTASSIUM 2.5 mmol/L (3.5-5.1); SGPT/ALT 20 U/L (13-61)
[2022-10-06] MEDS: APIXABAN 5 MG TABLET PO SCH ×2 (13:54→22:23)
[2022-10-06] MEDS ORDERED: POTASSIUM CHLORIDE ORAL LIQUID 20 MEQ/15 ML PO ONE ×2 (14:00→18:30)
[2022-10-06] MEDS: hydrOXYzine PAMOATE 25 MG CAPSULE (FP) PO PRN (14:57)
[2022-10-06] MEDS ORDERED: MIRTAZAPINE 15 MG TABLET (FP) PO SCH ×2 (22:00)
[2022-10-06] MEDS: THIAMINE HCL 100 MG TABLET (FP) PO SCH (22:23)
[2022-10-06] MEDS: ROSUVASTATIN CA 5 MG TABLET PO SCH (22:23)
[2022-10-06] MEDS: MELATONIN 5 MG TABLETS PO SCH (22:24)
[2022-10-07] MEDS: diazePAM 5 MG TABLET PO SCH ×3 (05:37→22:19)
[2022-10-07] MEDS: ACETAMINOPHEN 325 MG TABLET (FP) PO PRN (05:38)
[2022-10-07] MEDS: propRANOLol HCL 10 MG TABLET PO SCH ×3 (05:39→22:19)
[2022-10-07] MEDS: LEVOTHYROXINE NA 25 MCG TABLET (FP) PO SCH (06:24)
[2022-10-07] MEDS ORDERED: POTASSIUM CHLORIDE ORAL LIQUID 20 MEQ/15 ML PO ONE (09:30)
[2022-10-07] MEDS: APIXABAN 5 MG TABLET PO SCH ×2 (10:18→22:19)
[2022-10-07] MEDS: PRENATAL VITAMINS W/ FOLIC ACID TABLET (FP) PO SCH (10:19)
[2022-10-07] MEDS: TOPIRAMATE 100 MG TABLET PO SCH ×2 (10:21→22:19)
[2022-10-07] MEDS: METHOCARBAMOL 500 MG TABLET PO PRN (10:21)
[2022-10-07] MEDS: diazePAM 5 MG TABLET PO PRN (10:22)
[2022-10-07 18:33] LABS: POTASSIUM 3.3 mmol/L (3.5-5.1)
[2022-10-07] MEDS: hydrOXYzine PAMOATE 25 MG CAPSULE (FP) PO PRN (18:34)
[2022-10-07 18:39] LABS: BLOOD UREA NITROGEN 13.4 mg/dL (7-18)
[2022-10-07 18:43] LABS: CREATININE 0.8 mg/dL (0.55-1.3)
[2022-10-07] MEDS: POTASSIUM CHLORIDE ORAL LIQUID 20 MEQ/15 ML PO SCH (22:18)
[2022-10-07] MEDS: MIRTAZAPINE 15 MG TABLET (FP) PO SCH (22:18)
[2022-10-07] MEDS: THIAMINE HCL 100 MG TABLET (FP) PO SCH (22:19)
[2022-10-07] MEDS: ROSUVASTATIN CA 5 MG TABLET PO SCH (22:19)
[2022-10-07] MEDS: MELATONIN 5 MG TABLETS PO SCH (22:20)
[2022-10-08] MEDS: diazePAM 5 MG TABLET PO SCH ×2 (06:10→17:13)
[2022-10-08] MEDS: LEVOTHYROXINE NA 25 MCG TABLET (FP) PO SCH (06:12)
[2022-10-08] MEDS: propRANOLol HCL 10 MG TABLET PO SCH ×3 (06:12→22:13)
[2022-10-08] MEDS: PRENATAL VITAMINS W/ FOLIC ACID TABLET (FP) PO SCH (10:42)
[2022-10-08] MEDS: APIXABAN 5 MG TABLET PO SCH ×2 (10:42→22:13)
[2022-10-08] MEDS: POTASSIUM CHLORIDE ORAL LIQUID 20 MEQ/15 ML PO SCH (10:42)
[2022-10-08] MEDS: TOPIRAMATE 100 MG TABLET PO SCH ×2 (10:42→22:14)
[2022-10-08 13:47] VITALS: RESP 18
[2022-10-08] MEDS: ACETAMINOPHEN 325 MG TABLET (FP) PO PRN ×2 (17:14→22:14)
[2022-10-08] MEDS: ROSUVASTATIN CA 5 MG TABLET PO SCH (22:13)
[2022-10-08] MEDS: THIAMINE HCL 100 MG TABLET (FP) PO SCH (22:14)
[2022-10-08] MEDS: MELATONIN 5 MG TABLETS PO SCH (22:14)
[2022-10-08] MEDS: MIRTAZAPINE 15 MG TABLET (FP) PO SCH (22:14)
[2022-10-08] MEDS: diazePAM 5 MG TABLET PO PRN (22:17)
[2022-10-09] MEDS: propRANOLol HCL 10 MG TABLET PO SCH (05:29)
[2022-10-09] MEDS ORDERED: diazePAM 5 MG TABLET PO ONE (06:00)
[2022-10-09] MEDS: LEVOTHYROXINE NA 25 MCG TABLET (FP) PO SCH (06:13)
[2022-10-09 10:03] VITALS: BP 135/72; PULSE 75; TEMP 98
[2022-10-09] MEDS: TOPIRAMATE 100 MG TABLET PO SCH (10:09)
[2022-10-09] MEDS: PRENATAL VITAMINS W/ FOLIC ACID TABLET (FP) PO SCH (10:10)
[2022-10-09] MEDS: APIXABAN 5 MG TABLET PO SCH (10:10)
== END 2022-10-09 10:30 | disposition home or self-care (01) | DRG 775 ==
LOC: YASAS 18:24 → Y3N 22:37
PROVIDERS: ADMIT Allergy & Immunology; ATTEND Surgery
PROC: HZ2ZZZZ Detoxification Services for Substance Abuse Treatment (ICD-10-PCS; principal; 2022-10-05)
DX: F10.230 Alcohol dependence with withdrawal, uncomplicated (principal); E87.6 Hypokalemia; E03.9 Hypothyroidism, unspecified; E78.5 Hyperlipidemia, unspecified; G40.909 Epilepsy, unspecified, not intractable, without status epilepticus; I10 Essential (primary) hypertension
CPT/HCPCS: 36415; 80048; 80053; 85027; 86780; 93005; 93010; C9803-CS; U0003; U0005